=== PATIENT | female | born 1970 | race Caucasian/White ===

== ENCOUNTER → 2016-12-08 | Outpatient (CLI) | payer MEDICARE ==
--- NOTE | 2016-12-08 14:02 | KCIC ---
Examination: MRI of the left knee without contrast HISTORY History of left knee pain, arthritis, pain for 1 month COMPARISON None available. TECHNIQUE Multiplanar, multisequence MR imaging of the left knee was performed without contrast. Findings: The anterior cruciate ligament, posterior cruciate ligament appear intact. There is horizontal increased signal identified in the medial meniscus probably due to degeneration however the signal appears to abut the inferior portion of junction of the body and posterior horn, a small oblique tear of the medial meniscus is a possibility. The lateral meniscus appears intact. The medial collateral ligament is intact.The lateral collateral ligamentous complex including the fibular collateral ligament, biceps femoris tendon, popliteus tendon appear intact. The extensor mechanism is intact. Mild tendinosis of the quadriceps tendon and infrapatellar tendon identified. Moderate knee joint effusion. There is deep fissuring of cartilage identified in the medial compartment with complete cartilage loss in the weightbearing portion measuring up to 9 millimeters in transverse dimension and 1.4 centimeters in AP dimension. Mild trabecular edema identified in the weightbearing portion of the tibial plateau and the femoral condyle medially. There is superficial fraying of cartilage identified in the lateral compartment. The medial meniscus, lateral meniscus appears intact. There is deep fissuring of cartilage identified in the patellofemoral compartment in the patellar trochlea region and the lateral patellar facet. Moderate tricompartmental degenerative changes identified most in the medial compartment. Impression: - Horizontal signal identified in the medial meniscus likely secondary to degeneration. Small portion of the horizontal signal abuts the inferior articular surface junction of the body and posterior horn of the medial meniscus, question a small meniscal tear. 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 - Moderate knee joint effusion. - Tricompartmental degenerative changes most in the medial compartment. - Tendinosis of the quadriceps tendon and infrapatellar tendon. Electronically signed by: Donn Guadarrama (December 08, 2016 14:01:04)
== END | disposition home or self-care (01) ==
LOC: KCIC MRI 12:45
DX: M17.12 Unilateral primary osteoarthritis, left knee (principal); M25.462 Effusion, left knee
CPT/HCPCS: 73721